=== PATIENT | female | born 1970 | race Hispanic/Latino ===

== ENCOUNTER 2020-07-24 16:12 | Observation (INO) | payer MEDICARE ==
[2020-07-24] MEDS ORDERED: ASPIRIN 325 MG TAB PO ONE (16:33)
--- NOTE | 2020-07-24 17:06 | XRay Report ---
CHEST 2 VIEWS INDICATION / CLINICAL INFORMATION: Chest Pain. COMPARISON: None available. FINDINGS: SUPPORT DEVICES: None. HEART / MEDIASTINUM: No significant abnormality. LUNGS / PLEURA: No significant pulmonary or pleural abnormality. No pneumothorax. ADDITIONAL FINDINGS: No significant additional findings. IMPRESSION: No acute cardiopulmonary abnormality. Signer Name: Jose R Cross MD Signed: 07/24/2020 5:02 PM Workstation Name: [id number]
[2020-07-24 17:20] LABS: Basophils % (Auto) 0.5 % (0.0-1.8); Eosinophils # (Auto) 0.2 K/mm3 (0.0-0.4); Eosinophils % (Auto) 2.4 % (0.0-4.3); Hematocrit 38.7 % (30.3-42.9); Hemoglobin 12.9 gm/dl (10.1-14.3); Lymphocytes # (Auto) 2.9 K/mm3 (1.2-5.4); Lymphocytes % (Auto) 32.1 % (13.4-35.0); Mean Corpuscular HGB Conc 33 % (30-34); Mean Corpuscular Volume 84 fl (79-97); Monocytes # (Auto) 0.7 K/mm3 (0.0-0.8); Monocytes % (Auto) 7.4 % (0.0-7.3); Platelet Count 205 K/mm3 (140-440); Red Blood Count 4.61 M/mm3 (3.65-5.03); Red Cell Distribution Width 16.8 % (13.2-15.2)
[2020-07-24 17:36] LABS: Blood Urea Nitrogen 18 mg/dL (7-17); Calcium 8.8 mg/dL (8.4-10.2); Hemolysis Index 5
[2020-07-24 17:53] LABS: BUN/Creatinine Ratio 26
[2020-07-24] MEDS ORDERED: fentaNYL 100 MCG/2 ML INJ IV ONE (20:27)
[2020-07-24] MEDS ORDERED: ONDANSETRON 4 MG/2 ML INJ IV ONE (20:27)
[2020-07-24] MEDS ORDERED: NITROGLYCERIN 2% OINT 1 GM TP ONE (20:32)
--- NOTE | 2020-07-24 20:35 | Emergency Department Report ---
HPI - General Chief Complaint: Chest Pain Time Seen by Provider: 07/24/20 20:22 - HPI HPI: Room 34 The patient is a 50-year-old female presents with a chief complaint of chest pain. The patient has a history of coronary artery disease and states she last received a cardiac stent approximately 2 years ago. The patient states for the past 1.5 weeks she has had intermittent substernal chest pain radiating to her left upper extremity and shoulder. Patient states he feels as though there is an elephant sitting on her chest. Patient admits to shortness of breath, nausea/vomiting and diaphoresis with her pain. Patient currently gives her chest pain score of 6/10. The patient states she contacted her clinical laboratory aide today (Dr. King) when turn instructed her to come to the emergency department. ED Past Medical Hx - Past Medical History Previous Medical History?: Yes Hx Asthma: Yes Additional medical history: RSD, Diverticulitis, IBS, - Surgical History Past Surgical History?: Yes Hx Cholecystectomy: Yes Additional Surgical History: Fundoplication, hemorrhoidectomy, partial hysterectomy - Family History Family history: no significant - Social History Smoking Status: Current Every Day Smoker (1/3 pack/day) Substance Use Type: None (Denies illicit drug use) - Medications Home Medications: Home Medications Medication Instructions Recorded Confirmed Last Taken Type Dicyclomine [Bentyl] 20 mg PO QID PRN #20 tablet 09/13/14 Unknown Rx Ibuprofen [Advil] 100 mg PO PRN PRN 09/13/14 09/13/14 09/13/14 History ED Review of Systems ROS: Stated complaint: CHEST PAIN Other details as noted in HPI Constitutional: diaphoresis Eyes: denies: eye pain ENT: denies: throat pain Respiratory: shortness of breath Cardiovascular: chest pain Endocrine: no symptoms reported Gastrointestinal: nausea, vomiting Genitourinary: denies: dysuria Musculoskeletal: denies: back pain Neurological: denies: headache Physical Exam - Physical Exam Vital Signs: Vital Signs 07/24/20 16:17 Temperature 98 F Pulse Rate 95 H Respiratory 24 Rate Blood Pressure 125/91 [Right] O2 Sat by Pulse 96 Oximetry Physical Exam: GENERAL: The patient is well-developed well-nourished female lying on stretcher not appearing to be in acute distress. [] HEENT: Normocephalic. Atraumatic. Extraocular motions are intact. Patient has moist mucous membranes. NECK: Supple. Trachea midline CHEST/LUNGS: Clear to auscultation. There is no respiratory distress noted. HEART/CARDIOVASCULAR: Regular. There is no tachycardia. There is no gallop rub or murmur. ABDOMEN: Abdomen is soft, nontender. Patient has normal bowel sounds. There is no abdominal distention. SKIN: There is no rash. There is no edema. There is no diaphoresis. NEURO: The patient is awake, alert, and oriented. The patient is cooperative. The patient has no focal neurologic deficits. The patient has normal speech MUSCULOSKELETAL: There is no evidence of acute injury. ED Course Vital Signs 07/24/20 16:17 Temperature 98 F Pulse Rate 95 H Respiratory 24 Rate Blood Pressure 125/91 [Right] O2 Sat by Pulse 96 Oximetry ED Medical Decision Making - Lab Data Result diagrams: 07/24/20 17:04 07/24/20 17:04 Laboratory Tests 07/24/20 07/24/20 17:04 17:04 WBC 9.0 RBC 4.61 Hgb 12.9 Hct 38.7 MCV 84 MCH 28 MCHC 33 RDW 16.8 H Plt Count 205 Lymph % (Auto) 32.1 [place] % (Auto) 7.4 H Eos % (Auto) 2.4 Baso % (Auto) 0.5 Lymph # (Auto) 2.9 [place] # (Auto) 0.7 Eos # (Auto) 0.2 Baso # (Auto) 0.0 Seg Neutrophils % 57.6 Seg Neutrophils # 5.2 Sodium 144 Potassium 4.1 Chloride 107.8 H Carbon Dioxide 24 Anion Gap 16 BUN 18 H Creatinine 0.7 Estimated GFR > 60 BUN/Creatinine Ratio 26 Glucose 86 Calcium 8.8 Troponin T < 0.010 - EKG Data -: EKG Interpreted by Me EKG shows normal: sinus rhythm Rate: normal - EKG Data When compared to previous EKG there are: previous EKG unavailable Interpretation: other (No ischemic changes seen) - Radiology Data Radiology results: report reviewed (Chest x-ray), image reviewed (Chest x-ray) interpreted by me: Chest x-ray-no focal infiltrates, no pneumothorax, no foreign body seen Findings [facility] [address] [place] [address] XRay Report Signed Patient: MARYCARMEN RYDER MR#: [id number] : 1970 Acct:[id number] Age/Sex: 50 / F ADM Date: 07/24/20 Loc: ED Attending Dr: Ordering Physician: FARTUN GEORGE MD Date of Service: 07/24/20 Procedure(s): XR chest routine 2V Accession Number(s): [id number] cc: ED MD ARIEL Fluoro Time In Minutes: CHEST 2 VIEWS INDICATION / CLINICAL INFORMATION: Chest Pain. COMPARISON: None available. FINDINGS: SUPPORT DEVICES: None. HEART / MEDIASTINUM: No significant abnormality. LUNGS / PLEURA: No significant pulmonary or pleural abnormality. No pneumothorax. ADDITIONAL FINDINGS: No significant additional findings. IMPRESSION: No acute cardiopulmonary abnormality. Signer Name: Patricia Cross MD Signed: 07/24/2020 5:02 PM Workstation Name: [id number] Transcribed By: SS Dictated By: PATRICIA CROSS Electronically Authenticated By: PATRICIA CROSS Signed Date/Time: 07/24/201701 DD/ 00 TD/TT: - Differential Diagnosis ACS, pericarditis, GERD Critical care attestation.: If time is entered above; I have spent that time in minutes in the direct care of this critically ill patient, excluding procedure time. ED Disposition Clinical Impression: Chest pain Disposition: OP ADMIT IP TO THIS HOSP Is pt being admited?: Yes Does the pt Need Aspirin: Yes Condition: Fair Instructions: Chest Pain (ED) Referrals: PRIMARY CARE, [Primary Care Provider] - 3-5 Days Time of Disposition: 21:06 (Hospitalist paged (Dr. Bacon)) HEART Score - HEART Score History: Highly suspicious EKG: Normal Age: 45-65 Risk factors: 1-2 risk factors Troponin: Troponin T < 0.010 ng/mL (0.00-0.029) 07/24/20 17:04 Troponin: < normal limit HEART Score: 4
--- NOTE | 2020-07-24 23:07 | History and Physical Report ---
History of Present Illness Date of examination: 07/24/20 Date of admission: 07/24/20 21:18 Chief complaint: chest pain History of present illness: The patient is a 50-year-old female presents with a chief complaint of chest pain. The patient has a history of coronary artery disease and states she last received a cardiac stent approximately 2 years ago. The patient states for the past 1.5 weeks she has had intermittent substernal chest pain radiating to her left upper extremity and shoulder. Patient states he feels as though there is an elephant sitting on her chest. Patient admits to shortness of breath, nausea/vomiting and diaphoresis with her pain. Patient currently gives her chest pain score of 6/10. The patient states she contacted her timber supervisor today (Dr. King) when turn instructed her to come to the emergency department. ED work-up shows WBC 9.0, hemoglobin 12.9, platelets 205, creatinine 0.9, sodium 144 Troponin negative, potassium 4.1, checks x-ray-no acute findings. Patient seen at bedside in the ED. Alert and oriented x3. Patient reports history of anxiety, intermittent chest pain, and a history of cardiac stent placement about 2 years ago. Chest pain nonradiating. Troponin was done on admission and is negative. Chest x-ray also done and it was negative. Dr. King is patients timber supervisor and will consult him to see patient. Past History Past Medical History: CAD, hyperlipidemia, other (stent placement, IBS and asthma) Past Surgical History: No surgical history Social history: smoking Medications and Allergies Allergies Allergy/AdvReac Type Severity Reaction Status Date / Time diphenhydramine HCl Allergy Swelling Verified 09/13/14 12:25 [From Benadryl] ketorolac tromethamine Allergy Shortness Verified 09/13/14 12:25 [From Toradol] of Breath Home Medications Medication Instructions Recorded Confirmed Last Taken Type Dicyclomine [Bentyl] 20 mg PO QID PRN #20 tablet 09/13/14 07/25/20 Unknown Rx Atorvastatin 40 mg PO DAILY 07/25/20 07/25/20 07/24/20 History Clopidogrel 75 mg PO DAILY 07/25/20 07/25/20 07/24/20 History Isosorbide Mononitrate 20 mg PO DAILY 07/25/20 07/25/20 07/24/20 History Metoprolol [Lopressor TAB] 25 mg PO BID 07/25/20 07/25/20 07/24/20 History Review of Systems Ears, nose, mouth and throat: no epistaxis Breasts: no pain Cardiovascular: chest pain, high blood pressure Respiratory: no congestion, no wheezing Gastrointestinal: no abdominal pain Genitourinary Female: no dyspareunia Rectal: no itching Integumentary: no rash, no pruritis Neurological: no vertigo Psychiatric: anxiety, anxiety attacks Hematologic/Lymphatic: no easy bruising Allergic/Immunologic: no urticaria Exam - Constitutional Vitals: Temp Pulse Resp BP Pulse Ox 98 F 86 17 108/61 96 07/24/20 16:17 07/24/20 22:15 07/24/20 22:15 07/24/20 22:15 07/24/20 22:15 General appearance: Present: mild distress, obese - EENT Eyes: Present: PERRL ENT: hearing intact, clear oral mucosa - Neck Neck: Present: supple, normal ROM - Respiratory Respiratory effort: normal Respiratory: bilateral: CTA - Cardiovascular Heart rate: 86 Heart Sounds: Present: S1 & S2. Absent: rub, click - Extremities Extremities: pulses symmetrical, No edema Peripheral Pulses: within normal limits - Abdominal General gastrointestinal: Present: soft, non-tender, non-distended, normal bowel sounds Female genitourinary: Present: normal - Integumentary Integumentary: Present: clear, warm, dry - Musculoskeletal Musculoskeletal: gait normal, strength equal bilaterally - Psychiatric Psychiatric: appropriate mood/affect, intact judgment & insight, cooperative - Neurologic Neurologic: CNII-XII intact, moves all extremities - Allied Health Allied health notes reviewed: nursing HEART Score - HEART Score EKG: Normal Age: 45-65 Risk factors: 1-2 risk factors Troponin: Troponin T < 0.010 ng/mL (0.00-0.029) 07/24/20 17:04 Troponin: < normal limit Results - Labs CBC & Chem 7: 07/24/20 17:04 07/24/20 17:04 Labs: Abnormal lab results 07/24/20 07/24/20 Range/Units 17:04 17:04 RDW 16.8 H (13.2-15.2) % [place] % (Auto) 7.4 H (0.0-7.3) % Chloride 107.8 H (98-107) mmol/L BUN 18 H (7-17) mg/dL Assessment and Plan - Patient Problems (1) Chest pain Current Visit: Yes Status: Acute Plan to address problem: Unknown cause possible anxiety/cardiac related Monitor cardiac enzymes. Troponin negative on admission Checks x-ray no acute finding Cardiology consult. (2) Tobacco use Current Visit: Yes Status: Acute Plan to address problem: Discussed tobacco use cessation Cardiovascular and neoplasm syndrome of tobacco use explained to patient (3) Hx of coronary artery disease Current Visit: Yes Status: Acute Plan to address problem: History of CAD with stents placement Supportive care and cardiac consults Continue antiplatelet (4) Morbid obesity due to excess calories Current Visit: Yes Status: Acute Plan to address problem: Discussed lifestyle modification Healthy diet with more fruits and vegetables Encouraged regular exercise and weight management Advised to avoid fatty food, animal fat, and foods rich in concentrated sweeteners.
[2020-07-24] MEDS ORDERED: METOCLOPRAMIDE 10 MG/2 ML INJ IV PRN (23:22)
[2020-07-24] MEDS ORDERED: LACTULOSE 20 GM/30 ML ORAL LIQD PO PRN (23:22)
[2020-07-24] MEDS ORDERED: ALUM-MAG HYDROXIDE-SIMETHICONE 200-200-20MG/5ML ORAL LIQD 30 ML PO PRN (23:22)
[2020-07-24] MEDS ORDERED: ONDANSETRON 4 MG/2 ML INJ IV PRN (23:22)
[2020-07-25] MEDS: traZODone 50 MG TAB PO SCH ×2 (00:09→21:31)
[2020-07-25] MEDS: ASPIRIN EC 81 MG TAB PO SCH (09:43)
[2020-07-25] MEDS: SERTRALINE 50 MG TAB PO SCH (09:43)
[2020-07-25] MEDS: ENOXAPARIN 40 MG/0.4 ML INJ SUB-Q SCH (09:44)
--- NOTE | 2020-07-25 10:04 | Progress Note ---
Assessment and Plan Assessment and plan: Chest pain. Tobacco abuse Coronary artery disease Morbid obesity due to excess calories. 07/25/2020. Patient reportedly with a history of coronary artery disease s/p stent 2 years ago. Troponin is negative. EKG normal sinus rhythm with no ST-T wave changes. Chest x-ray reveals no focal infiltrates, pneumothorax or foreign body seen. Await cardiology evaluation. History Interval history: No new issues overnight. Hospitalist Physical - Constitutional Vitals: Temp Pulse Resp BP Pulse Ox 98.4 F 84 18 105/52 96 07/25/20 07:47 07/25/20 07:47 07/25/20 07:47 07/25/20 07:47 07/25/20 07:47 General appearance: Present: mild distress, obese - EENT Eyes: Present: PERRL, EOM intact ENT: hearing intact, clear oral mucosa, dentition normal - Neck Neck: Present: supple, normal ROM - Respiratory Respiratory effort: normal Respiratory: bilateral: CTA - Cardiovascular Rhythm: regular Heart Sounds: Present: S1 & S2. Absent: gallop, rub - Extremities Extremities: no ischemia, No edema, Full ROM - Abdominal General gastrointestinal: soft, non-tender, non-distended, normal bowel sounds - Integumentary Integumentary: Present: clear, warm, dry - Neurologic Neurologic: CNII-XII intact, moves all extremities HEART Score - HEART Score EKG: Normal Age: 45-65 Risk factors: 1-2 risk factors Troponin: Troponin T < 0.010 ng/mL (0.00-0.029) 07/24/20 17:04 Troponin: < normal limit Results - Labs CBC & Chem 7: 07/24/20 17:04 07/24/20 17:04 Labs: Laboratory Last Values WBC 9.0 K/mm3 (4.5-11.0) 07/24/20 17:04 RBC 4.61 M/mm3 (3.65-5.03) 07/24/20 17:04 Hgb 12.9 gm/dl (10.1-14.3) 07/24/20 17:04 Hct 38.7 % (30.3-42.9) 07/24/20 17:04 MCV 84 fl (79-97) 07/24/20 17:04 MCH 28 pg (28-32) 07/24/20 17:04 MCHC 33 % (30-34) 07/24/20 17:04 RDW 16.8 % (13.2-15.2) H 07/24/20 17:04 Plt Count 205 K/mm3 (140-440) 07/24/20 17:04 Lymph % (Auto) 32.1 % (13.4-35.0) 07/24/20 17:04 [place] % (Auto) 7.4 % (0.0-7.3) H 07/24/20 17:04 Eos % (Auto) 2.4 % (0.0-4.3) 07/24/20 17:04 Baso % (Auto) 0.5 % (0.0-1.8) 07/24/20 17:04 Lymph # (Auto) 2.9 K/mm3 (1.2-5.4) 07/24/20 17:04 [place] # (Auto) 0.7 K/mm3 (0.0-0.8) 07/24/20 17:04 Eos # (Auto) 0.2 K/mm3 (0.0-0.4) 07/24/20 17:04 Baso # (Auto) 0.0 K/mm3 (0.0-0.1) 07/24/20 17:04 Seg Neutrophils % 57.6 % (40.0-70.0) 07/24/20 17:04 Seg Neutrophils # 5.2 K/mm3 (1.8-7.7) 07/24/20 17:04 Sodium 144 mmol/L (137-145) 07/24/20 17:04 Potassium 4.1 mmol/L (3.6-5.0) 07/24/20 17:04 Chloride 107.8 mmol/L (98-107) H 07/24/20 17:04 Carbon Dioxide 24 mmol/L (22-30) 07/24/20 17:04 Anion Gap 16 mmol/L 07/24/20 17:04 BUN 18 mg/dL (7-17) H 07/24/20 17:04 Creatinine 0.7 mg/dL (0.6-1.2) 07/24/20 17:04 Estimated GFR > 60 ml/min 07/24/20 17:04 BUN/Creatinine Ratio 26 % 02/05/21 17:04 Glucose 86 mg/dL (65-100) 07/24/20 17:04 Calcium 8.8 mg/dL (8.4-10.2) 07/24/20 17:04 Troponin T < 0.010 ng/mL (0.00-0.029) 07/24/20 17:04 [place]/IV: Voiding Method Toilet Active Medications - Current Medications Current Medications: Generic Name Dose Route Start Last Admin Trade Name Freq PRN Reason Stop Dose Admin Al Hydrox/Mg Hydrox/Simethicone 15 ml 07/24/20 23:22 07/25/20 09:44 Alum-Mag Hydroxide-Simethicone [id number]/5ml Oral Liqd 30 Ml PO 15 ml Q4H PRN Administration Indigestion Aspirin 81 mg 07/25/20 10:00 07/25/20 09:43 Aspirin Ec 81 Mg Tab PO 81 mg QDAY CHIP Administration Enoxaparin Sodium 40 mg 07/25/20 10:00 07/25/20 09:44 Enoxaparin 40 Mg/0.4 Ml Inj SUB-Q 40 mg QDAY CHIP Administration Protocol Lactulose 20 gm 07/24/20 23:22 Lactulose 20 Gm/30 Ml Oral Liqd PO QHS PRN Constipation Metoclopramide HCl 10 mg 07/24/20 23:22 Metoclopramide 10 Mg/2 Ml Inj IV Q6H PRN Nausea And Vomiting Ondansetron HCl 4 mg 07/24/20 23:22 07/25/20 09:43 Ondansetron 4 Mg/2 Ml Inj IV 4 mg Q4H PRN Administration Nausea And Vomiting Sertraline HCl 50 mg 07/25/20 10:00 07/25/20 09:43 Sertraline 50 Mg Tab PO 50 mg QDAY CHIP Administration Tramadol HCl 50 mg 07/24/20 23:22 Tramadol 50 Mg Tab PO Q4H PRN Pain, Moderate (4-6) Trazodone HCl 50 mg 07/25/20 00:15 07/25/20 00:09 Trazodone 50 Mg Tab PO 50 mg QHS CHIP Administration
[2020-07-25] MEDS ORDERED: FLU VACC QUAD 2020-2021 (6 months +)/PF 60 0.5 ML SYRINGE IM ONE (12:00)
--- NOTE | 2020-07-25 15:48 | Consultation ---
History of Present Illness Consult date: 07/25/20 Consult reason: chest pain History of present illness: 50 YO woman with prior h/o CAD s/p UT and PCI and tobacco use who is currently h ospitalized with left and mid sternal chest pain. She describes pain as a pressure type sensation with associated dyspnea. Of note, she was recently evaluated by Dr King in office after she had been lost to f/u for about 2 years and had not been taking her medications. She was scheduled for outpatient MPI and echo but ended up coming to hospital due to chest pain. Her prior cardiac history consists of prior acute lateral STEMI on 06/18/18. She was treated with primary PCI-DE stent to circumflex. Her LV function was normal at that time. EKG reveals SR and is otherwise unremarkable. Past History Past Medical History: CAD, hyperlipidemia, other (stent placement, IBS and asthma) Past Surgical History: No surgical history Social history: smoking Medications and Allergies Allergies Allergy/AdvReac Type Severity Reaction Status Date / Time diphenhydramine HCl Allergy Swelling Verified 09/13/14 12:25 [From Benadryl] ketorolac tromethamine Allergy Shortness Verified 09/13/14 12:25 [From Toradol] of Breath Home Medications Medication Instructions Recorded Confirmed Last Taken Type Dicyclomine [Bentyl] 20 mg PO QID PRN #20 tablet 09/13/14 07/25/20 Unknown Rx Atorvastatin 40 mg PO DAILY 07/25/20 07/25/20 07/24/20 History Clopidogrel 75 mg PO DAILY 07/25/20 07/25/20 07/24/20 History Isosorbide Mononitrate 20 mg PO DAILY 07/25/20 07/25/20 07/24/20 History Metoprolol [Lopressor TAB] 25 mg PO BID 07/25/20 07/25/20 07/24/20 History Active Meds: Active Medications Al Hydrox/Mg Hydrox/Simethicone (Alum-Mag Hydroxide-Simethicone [phone]/5ml Oral Liqd 30 Ml) 15 ml PO Q4H PRN PRN Reason: Indigestion Last Admin: 07/25/20 09:44 Dose: 15 ml Documented by: Aspirin (Aspirin Ec 81 Mg Tab) 81 mg PO QDAY CHIP Last Admin: 07/25/20 09:43 Dose: 81 mg Documented by: Enoxaparin Sodium (Enoxaparin 40 Mg/0.4 Ml Inj) 40 mg SUB-Q QDAY [facility]; Protocol Last Admin: 07/25/20 09:44 Dose: 40 mg Documented by: Lactulose (Lactulose 20 Gm/30 Ml Oral Liqd) 20 gm PO QHS PRN PRN Reason: Constipation Metoclopramide HCl (Metoclopramide 10 Mg/2 Ml Inj) 10 mg IV Q6H PRN PRN Reason: Nausea And Vomiting Ondansetron HCl (Ondansetron 4 Mg/2 Ml Inj) 4 mg IV Q4H PRN PRN Reason: Nausea And Vomiting Last Admin: 07/25/20 09:43 Dose: 4 mg Documented by: Sertraline HCl (Sertraline 50 Mg Tab) 50 mg PO QDAY [facility] Last Admin: 07/25/20 09:43 Dose: 50 mg Documented by: Tramadol HCl (Tramadol 50 Mg Tab) 50 mg PO Q4H PRN PRN Reason: Pain, Moderate (4-6) Trazodone HCl (Trazodone 50 Mg Tab) 50 mg PO QHS [facility] Last Admin: 07/25/20 00:09 Dose: 50 mg Documented by: Review of Systems All systems: negative (per hpi) Physical Examination Vital Signs Temp Pulse Resp BP Pulse Ox 98 F 95 H 24 125/91 96 07/24/20 16:17 07/24/20 16:17 07/24/20 16:17 07/24/20 16:17 07/24/20 16:17 HEENT: Positive: PERRL Neck: Positive: trachea midline Cardiac: Positive: Reg Rate and Rhythm Lungs: Positive: clear to auscultation Neuro: Positive: Grossly Intact Abdomen: Positive: Soft, Active Bowel Sounds Extremities: Absent: edema Results 07/24/20 17:04 07/24/20 17:04 CBC 07/24/20 Range/Units 17:04 WBC 9.0 (4.5-11.0) K/mm3 RBC 4.61 (3.65-5.03) M/mm3 Hgb 12.9 (10.1-14.3) gm/dl Hct 38.7 (30.3-42.9) % Plt Count 205 (140-440) K/mm3 Lymph # (Auto) 2.9 (1.2-5.4) K/mm3 [place] # (Auto) 0.7 (0.0-0.8) K/mm3 Eos # (Auto) 0.2 (0.0-0.4) K/mm3 Baso # (Auto) 0.0 (0.0-0.1) K/mm3 Comprehensive Metabolic Panel 07/24/20 Range/Units 17:04 Sodium 144 (137-145) mmol/L Potassium 4.1 (3.6-5.0) mmol/L Chloride 107.8 H (98-107) mmol/L Carbon Dioxide 24 (22-30) mmol/L BUN 18 H (7-17) mg/dL Creatinine 0.7 (0.6-1.2) mg/dL Glucose 86 (65-100) mg/dL Calcium 8.8 (8.4-10.2) mg/dL Assessment and Plan Chest pain in patient with known CAD H/O CAD s/p prior UT/PCI Tobacco use Recommend: Tobacco cessation Restart beta stephanie and statin MPI on monday
[2020-07-25] MEDS: traMADol 50 MG TAB PO PRN (16:55)
[2020-07-25] MEDS: METOPROLOL TARTRATE 25 MG TAB PO SCH (21:31)
[2020-07-25] MEDS ORDERED: traZODone 50 MG TAB PO SCH (22:00)
[2020-07-26 07:35] LABS: Basophils % (Auto) 0.5 % (0.0-1.8); Eosinophils # (Auto) 0.1 K/mm3 (0.0-0.4); Hematocrit 40.3 % (30.3-42.9); Hemoglobin 13.3 gm/dl (10.1-14.3); Lymphocytes # (Auto) 2.2 K/mm3 (1.2-5.4); Lymphocytes % (Auto) 32.4 % (13.4-35.0); Mean Corpuscular HGB Conc 33 % (30-34); Mean Corpuscular Volume 84 fl (79-97); Monocytes # (Auto) 0.5 K/mm3 (0.0-0.8); Monocytes % (Auto) 6.9 % (0.0-7.3); Platelet Count 185 K/mm3 (140-440); Red Blood Count 4.78 M/mm3 (3.65-5.03); Red Cell Distribution Width 16.4 % (13.2-15.2)
[2020-07-26 07:51] LABS: Blood Urea Nitrogen 13 mg/dL (7-17); Calcium 8.6 mg/dL (8.4-10.2); Hemolysis Index 4
[2020-07-26 07:52] LABS: BUN/Creatinine Ratio 22
--- NOTE | 2020-07-26 08:33 | Progress Note ---
Assessment and Plan Assessment and plan: 50 YO woman with prior h/o CAD s/p TX and PCI and tobacco use was admitted with diagnosis of chest pain. She described the pain as a pressure type sensation with associated dyspnea. Of note, she was recently evaluated by Dr King in office after she had been lost to f/u for about 2 years and had not been taking her medications. She was scheduled for outpatient MPI and echo but ended up coming to hospital due to chest pain. Her prior cardiac history consists of prior acute lateral STEMI on 06/18/18. She was treated with primary PCI-DE stent to circumflex. Her LV function was normal at that time. EKG on admission showed normal sinus rhythm with no ST-T wave change Chest pain. Tobacco abuse Coronary artery disease Morbid obesity due to excess calories. 07/25/2020. Patient reportedly with a history of coronary artery disease s/p stent 2 years ago. Troponin is negative. EKG normal sinus rhythm with no ST-T wave changes. Chest x-ray reveals no focal infiltrates, pneumothorax or foreign body seen. Await cardiology evaluation. 07/26/2020. Patient reportedly with prior cardiac history consisting of acute lateral [facility] on 06/18/2018 that was treated with primary PCIDE stent to the circumflex. LV function normal at that time. EKG reveals sinus rhythm and otherwise unremarkable. Cardiology plans to perform MPI on Monday. Continue beta-stephanie and statin. History Interval history: No new issues overnight. Hospitalist Physical - Constitutional Vitals: Temp Pulse Resp BP Pulse Ox 98.4 F 74 18 103/49 92 07/26/20 07:43 07/26/20 07:43 07/26/20 07:43 07/26/20 07:43 07/26/20 07:43 General appearance: Present: mild distress, obese - EENT Eyes: Present: PERRL, EOM intact ENT: hearing intact, clear oral mucosa, dentition normal - Neck Neck: Present: supple, normal ROM - Respiratory Respiratory effort: normal Respiratory: bilateral: CTA - Cardiovascular Rhythm: regular Heart Sounds: Present: S1 & S2. Absent: gallop, rub - Extremities Extremities: no ischemia, No edema, Full ROM - Abdominal General gastrointestinal: soft, non-tender, non-distended, normal bowel sounds - Integumentary Integumentary: Present: clear, warm, dry - Neurologic Neurologic: CNII-XII intact, moves all extremities HEART Score - HEART Score EKG: Normal Age: 45-65 Risk factors: 1-2 risk factors Troponin: Troponin T < 0.010 ng/mL (0.00-0.029) 07/24/20 17:04 Troponin: < normal limit Results - Labs CBC & Chem 7: 07/26/20 06:28 02 06:28 Labs: Laboratory Last Values WBC 6.7 K/mm3 (4.5-11.0) 07/26/20 06:28 RBC 4.78 M/mm3 (3.65-5.03) 07/26/20 06:28 Hgb 13.3 gm/dl (10.1-14.3) 07/26/20 06:28 Hct 40.3 % (30.3-42.9) 07/26/20 06:28 MCV 84 fl (79-97) 07/26/20 06:28 MCH 28 pg (28-32) 07/26/20 06:28 MCHC 33 % (30-34) 07/26/20 06:28 RDW 16.4 % (13.2-15.2) H 07/26/20 06:28 Plt Count 185 K/mm3 (140-440) 07/26/20 06:28 Lymph % (Auto) 32.4 % (13.4-35.0) 07/26/20 06:28 [place] % (Auto) 6.9 % (0.0-7.3) 07/26/20 06:28 Eos % (Auto) 2.0 % (0.0-4.3) 07/26/20 06:28 Baso % (Auto) 0.5 % (0.0-1.8) 07/26/20 06:28 Lymph # (Auto) 2.2 K/mm3 (1.2-5.4) 07/26/20 06:28 [place] # (Auto) 0.5 K/mm3 (0.0-0.8) 07/26/20 06:28 Eos # (Auto) 0.1 K/mm3 (0.0-0.4) 07/26/20 06:28 Baso # (Auto) 0.0 K/mm3 (0.0-0.1) 07/26/20 06:28 Seg Neutrophils % 58.2 % (40.0-70.0) 07/26/20 06:28 Seg Neutrophils # 3.9 K/mm3 (1.8-7.7) 07/26/20 06:28 Sodium 140 mmol/L (137-145) 07/26/20 06:28 Potassium 3.9 mmol/L (3.6-5.0) 07/26/20 06:28 Chloride 105.4 mmol/L (98-107) 07/26/20 06:28 Carbon Dioxide 29 mmol/L (22-30) 07/26/20 06:28 Anion Gap 10 mmol/L 07/26/20 06:28 BUN 13 mg/dL (7-17) 07/26/20 06:28 Creatinine 0.6 mg/dL (0.6-1.2) 07/26/20 06:28 Estimated GFR > 60 ml/min 07/26/20 06:28 BUN/Creatinine Ratio 22 % 07/26/20 06:28 Glucose 89 mg/dL (65-100) 07/26/20 06:28 Calcium 8.6 mg/dL (8.4-10.2) 07/26/20 06:28 Troponin T < 0.010 ng/mL (0.00-0.029) 07/24/20 17:04 [place]/IV: Voiding Method Toilet Active Medications - Current Medications Current Medications: Generic Name Dose Route Start Last Admin Trade Name Freq PRN Reason Stop Dose Admin Al Hydrox/Mg Hydrox/Simethicone 15 ml 07/24/20 23:22 07/25/20 09:44 Alum-Mag Hydroxide-Simethicone 475-509-26wh/5ml Oral Liqd 30 Ml PO 15 ml Q4H PRN Administration Indigestion Aspirin 81 mg 07/25/20 10:00 07/25/20 09:43 Aspirin Ec 81 Mg Tab PO 81 mg QDAY CHIP Administration Atorvastatin Calcium 20 mg 07/25/20 22:00 07/25/20 21:31 Atorvastatin 20 Mg Tab PO 20 mg QHS CHIP Administration Enoxaparin Sodium 40 mg 07/25/20 10:00 07/25/20 09:44 Enoxaparin 40 Mg/0.4 Ml Inj SUB-Q 40 mg QDAY CHIP Administration Protocol Lactulose 20 gm 02/05/21 23:22 Lactulose 20 Gm/30 Ml Oral Liqd PO QHS PRN Constipation Metoclopramide HCl 10 mg 07/24/20 23:22 Metoclopramide 10 Mg/2 Ml Inj IV Q6H PRN Nausea And Vomiting Metoprolol Tartrate 25 mg 07/25/20 22:00 07/25/20 21:31 Metoprolol Tartrate 25 Mg Tab PO 25 mg BID CHIP Administration Ondansetron HCl 4 mg 07/24/20 23:22 07/25/20 09:43 Ondansetron 4 Mg/2 Ml Inj IV 4 mg Q4H PRN Administration Nausea And Vomiting Sertraline HCl 50 mg 07/25/20 10:00 07/25/20 09:43 Sertraline 50 Mg Tab PO 50 mg QDAY CHIP Administration Tramadol HCl 50 mg 07/24/20 23:22 07/25/20 16:55 Tramadol 50 Mg Tab PO 50 mg Q4H PRN Administration Pain, Moderate (4-6) Trazodone HCl 50 mg 07/25/20 00:15 07/25/20 21:31 Trazodone 50 Mg Tab PO 50 mg QHS CHIP Administration
[2020-07-26] MEDS: METOPROLOL TARTRATE 25 MG TAB PO SCH ×2 (09:36→21:16)
[2020-07-26] MEDS: ASPIRIN EC 81 MG TAB PO SCH (09:36)
[2020-07-26] MEDS: ENOXAPARIN 40 MG/0.4 ML INJ SUB-Q SCH (09:36)
[2020-07-26] MEDS: SERTRALINE 50 MG TAB PO SCH (09:36)
--- NOTE | 2020-07-26 15:03 | Progress Note ---
Assessment and Plan Chest pain in patient with known CAD H/O CAD s/p prior NE/PCI Tobacco use Recommend: Tobacco cessation Continue aspirin, beta stephanie, and statin MPI on monday Subjective Date of service: 07/26/20 Interval history: No new complaints Objective Vital Signs Temp Pulse Resp BP BP Pulse Ox 07/26/20 10:54 18 96 07/26/20 09:40 18 108/45 07/26/20 09:36 108/50 07/26/20 07:43 98.4 F 74 18 103/49 92 07/26/20 07:00 76 07/26/20 04:43 75 95/48 91 07/26/20 00:11 98.0 F 73 18 109/43 110/58 94 07/25/20 23:00 82 07/25/20 20:36 18 07/25/20 19:35 98.6 F 82 20 140/59 96 07/25/20 16:36 98.4 F 84 18 112/58 96 - Physical Examination HEENT: Positive: PERRL Neck: Positive: trachea midline Cardiac: Positive: Reg Rate and Rhythm Lungs: Positive: clear to auscultation Neuro: Positive: Grossly Intact Abdomen: Positive: Soft, Active Bowel Sounds Extremities: Absent: edema - Labs and Meds CBC 07/26/20 Range/Units 06:28 WBC 6.7 (4.5-11.0) K/mm3 RBC 4.78 (3.65-5.03) M/mm3 Hgb 13.3 (10.1-14.3) gm/dl Hct 40.3 (30.3-42.9) % Plt Count 185 (140-440) K/mm3 Lymph # (Auto) 2.2 (1.2-5.4) K/mm3 [place] # (Auto) 0.5 (0.0-0.8) K/mm3 Eos # (Auto) 0.1 (0.0-0.4) K/mm3 Baso # (Auto) 0.0 (0.0-0.1) K/mm3 Comprehensive Metabolic Panel 07/26/20 Range/Units 06:28 Sodium 140 (137-145) mmol/L Potassium 3.9 (3.6-5.0) mmol/L Chloride 105.4 (98-107) mmol/L Carbon Dioxide 29 (22-30) mmol/L BUN 13 (7-17) mg/dL Creatinine 0.6 (0.6-1.2) mg/dL Glucose 89 (65-100) mg/dL Calcium 8.6 (8.4-10.2) mg/dL
[2020-07-26] MEDS: traMADol 50 MG TAB PO PRN (17:43)
[2020-07-26] MEDS: traZODone 50 MG TAB PO SCH (21:16)
[2020-07-27] MEDS ORDERED: REGADENOSON 0.4 MG/5 ML INJ IV ONE (07:15)
--- NOTE | 2020-07-27 09:30 | Discharge Summary ---
Providers - Providers Date of Admission: 07/26/20 14:35 Date of discharge: 07/27/20 Attending physician: RIDGE MARCOS 07/25/20 07:58 Consult to Physician [CONS] Routine Comment: Consulting Provider: CROW TATE Physician Instructions: Reason For Exam: CP Primary care physician: [facility] Hospitalization Reason for admission: cp Condition: Fair Hospital course: Assessment and plan: 50 YO woman with prior h/o CAD s/p MT and PCI and tobacco use was admitted with diagnosis of chest pain. She described the pain as a pressure type sensation with associated dyspnea. Of note, she was recently evaluated by Dr Tate in office after she had been lost to f/u for about 2 years and had not been taking her medications. She was scheduled for outpatient MPI and echo but ended up coming to hospital due to chest pain. Her prior cardiac history consists of prior acute lateral STEMI on 06/18/18. She was treated with primary PCI-DE stent to circumflex. Her LV function was normal at that time. EKG on admission showed normal sinus rhythm with no ST-T wave change. The patient was admitted with diagnosis of Chest pain, Tobacco abuse, Coronary artery disease and morbid obesity due to excess calories. Hospital course: 07/25/2020. Patient reportedly with a history of coronary artery disease s/p stent 2 years ago. Troponin is negative. EKG normal sinus rhythm with no ST-T wave changes. Chest x-ray reveals no focal infiltrates, pneumothorax or foreign body seen. Await cardiology evaluation. 07/26/2020. Patient reportedly with prior cardiac history consisting of acute lateral [facility] on 06/18/2018 that was treated with primary PCIDE stent to the circumflex. LV function normal at that time. EKG reveals sinus rhythm and otherwise unremarkable. Cardiology plans to perform MPI on Monday. Continue beta-stephanie and statin. 07/27/2020. Patient is to undergo MPI today and if found to be negative will discharge home. Patient is to have tobacco cessation and was counseled. Patient is to continue aspirin, beta-stephanie and statin. Etiology of chest pain is likely secondary to GERD. Dedicated discharge time 35 minutes. Disposition: - TO HOME OR SELFCARE Time spent for discharge: 35 - Discharge Diagnoses (1) GERD (gastroesophageal reflux disease) Status: Acute (2) Chest pain Status: Acute (3) Hx of coronary artery disease Status: Acute (4) Morbid obesity due to excess calories Status: Acute (5) Tobacco use Status: Acute Core Measure Documentation - Palliative Care Palliative Care/ Comfort Measures: Not Applicable - Core Measures Any of the following diagnoses?: none Exam - Constitutional Vitals: Temp Pulse Resp BP Pulse Ox 97.7 F 70 18 93/51 96 07/27/20 03:48 07/27/20 03:48 07/27/20 08:09 07/27/20 03:48 07/27/20 08:09 General appearance: Present: no acute distress, well-nourished - EENT Eyes: Present: PERRL ENT: hearing intact, clear oral mucosa - Neck Neck: Present: supple, normal ROM - Respiratory Respiratory effort: normal Respiratory: bilateral: CTA - Cardiovascular Heart Sounds: Present: S1 & S2. Absent: rub, click - Extremities Extremities: pulses symmetrical, No edema Peripheral Pulses: within normal limits - Abdominal General gastrointestinal: Present: soft, non-tender, non-distended, normal bowel sounds Female genitourinary: Present: normal - Integumentary Integumentary: Present: clear, warm, dry - Musculoskeletal Musculoskeletal: gait normal, strength equal bilaterally - Psychiatric Psychiatric: appropriate mood/affect, intact judgment & insight - Neurologic Neurologic: CNII-XII intact, moves all extremities Plan Activity: advance as tolerated Weight Bearing Status: Weight Bear as Tolerated Diet: low fat, low cholesterol, low salt Follow up with: PRIMARY CAREMD [Primary Care Provider] - 3-5 Days CROW TATE MD [Staff Physician] - 7 Days Prescriptions: Atorvastatin 40 mg PO DAILY #30 Dicyclomine [Bentyl] 20 mg PO QID PRN #20 tablet PRN Reason: Pain Clopidogrel 75 mg PO DAILY #30 Isosorbide Mononitrate 20 mg PO DAILY #30 Metoprolol [Lopressor TAB] 25 mg PO BID #60
--- NOTE | 2020-07-27 11:03 | Progress Note ---
Assessment and Plan - Patient Problems (1) Chest pain Current Visit: Yes Status: Acute Plan to address problem: Patient presented with atypical chest pain, ECGs and cardiac enzymes are negative. She is status post Lexiscan thallium stress test, results are pending. Subjective Date of service: 07/27/20 Interval history: Patient is comfortable, underwent a Lexiscan thallium stress test today, results are pending. Objective Vital Signs Temp Pulse Resp BP Pulse Ox 07/27/20 08:09 18 96 07/27/20 03:48 97.7 F 70 18 93/51 89 07/26/20 23:21 98.0 F 71 18 93/40 91 07/26/20 22:00 18 96 07/26/20 19:14 98.8 F 84 18 121/64 93 07/26/20 16:07 98.9 F 66 18 96/57 95 07/26/20 15:00 78 - Physical Examination General: No Apparent Distress HEENT: Positive: PERRL Neck: Positive: trachea midline Cardiac: Positive: Reg Rate and Rhythm Lungs: Positive: Decreased Breath Sounds Neuro: Positive: Grossly Intact Abdomen: Positive: Soft, Active Bowel Sounds Skin: Positive: Clear Extremities: Absent: edema
[2020-07-27 12:14] VITALS: BP 107/67
--- NOTE | 2020-07-27 12:26 | Treadmill Report ---
THALLIUM STRESS TEST LEFT VENTRICLE: Left ventricular chamber size is within normal limits. Perfusion study demonstrates homogeneous uptake of the tracer in all segments, no significant defects identified. Gated analysis demonstrates normal left ventricular systolic function, ejection fraction of 67%. CONCLUSION: Normal myocardial perfusion study. JOB# [id number] CA/NTS
== END 2020-07-27 12:59 | disposition home or self-care (01) ==
LOC: ED 16:12 → 4A 21:18 → INTOOBSV 07-26 14:35 → OBSVTOIN 07-26 14:35
PROVIDERS: ADMIT Internal Medicine Geriatric Medicine; ATTEND Hospitalist
DX: R07.89 Other chest pain (principal); I25.10 Atherosclerotic heart disease of native coronary artery without angina pectoris; F17.200 Nicotine dependence, unspecified, uncomplicated; E66.01 Morbid (severe) obesity due to excess calories; J45.909 Unspecified asthma, uncomplicated; K57.92 Diverticulitis of intestine, part unspecified, without perforation or abscess without bleeding; E78.5 Hyperlipidemia, unspecified; K58.9 Irritable bowel syndrome, unspecified; Z90.710 Acquired absence of both cervix and uterus; Z98.890 Other specified postprocedural states; Z68.38 Body mass index [BMI] 38.0-38.9, adult; Z95.1 Presence of aortocoronary bypass graft; Z79.82 Long term (current) use of aspirin
CPT/HCPCS: 36415; 71046; 78452; 80048; 84484; 85025; 93005; 93017; 96372; 96374; 96375; 96376; 99285; A9270; A9502; G0378; J1650; J2405; J2785; J3010; 90686

== ENCOUNTER 2021-07-07 12:22 | Emergency (ER) | payer MEDICARE ==
[2021-07-07 13:00] VITALS: BP 128/93
[2021-07-07] MEDS ORDERED: NITROGLYCERIN 0.4 MG TAB SUBL SL ONE (13:50)
[2021-07-07] MEDS ORDERED: FAMOTIDINE 20 MG TAB PO ONE (13:51)
--- NOTE | 2021-07-07 13:52 | Emergency Department Report ---
ED General Adult HPI - General Chief complaint: Chest Pain Stated complaint: CHEST PAIN PUI?: Yes Time Seen by Provider: 07/07/21 13:24 Source: patient, EMS ( EMS documentation not available at time of chart dictation ), RN notes reviewed, old records reviewed Mode of arrival: Stretcher Limitations: No Limitations - History of Present Illness Initial comments: The patient was evaluated in the emergency department for symptoms described in the history of present illness. He/she was evaluated in the context of the global COVID-19 pandemic, which necessitated consideration that the patient might be at risk for infection with the virus that causes COVID-19. Institutional protocols and algorithms that pertain to the evaluation of patients at risk for COVID-19 are in a state of rapid change based on information released by regulatory bodies including the CDC and federal and state organizations. These policies and algorithms were followed during the patient's care in the emergency department. Please note that these policies, procedures and recommendations changed on a rapid basis. The patient is a 51-year-old female. She follows with [facility]. Her past medical history includes obesity, heart disease status postmyocardial infarction, tobacco use, and stent placement. The patient had an acute lateral STEMI on June 18, 2018. She was treated with primary PCI drug-eluting stents to the circumflex, and was found to have a normal LV ejection fraction. She has previously been lost to follow-up secondary to noncompliance. Patient was admitted to this hospital last year, July 2020, for acute chest pain. At that time, she had a nuclear stress test which was negative for acute findings. The patient presents to the ER today with a primary complaint of chest pain which is central and right-sided. The pain does not radiate to the back, arms and neck. The patient denies vomiting and diaphoresis. The patient denies travel, surgery, immobilization, leg pain and leg swelling. She denies DVT/PE risk factors. Patient endorses a secondary complaint of believing that people at her house are trying to poison her with ivermectin and sodium pentathol. However, she also states that her family does not want to have her live in the house with them, and she also reports that they are planning on selling the house. The patient herself states that she is not homicidal or suicidal, and that she is not experiencing hallucinations. She is adamant that she has not attempted to overdose on ivermectin, or any drugs for that matter. She was able to procure a packet of ivermectin from home, and while she insists that sodium pentathol is being used on her, she does not have any physical evidence of the aforementioned. -: Gradual, days(s) Location: chest (Right sided) Radiation: non-radiation Severity scale (0 -10): 5 Quality: aching Consistency: constant Improves with: none Worsens with: none Associated Symptoms: denies other symptoms - Related Data Previous Rx's Medication Instructions Recorded Last Taken Type Aspirin EC [Halfprin EC] 81 mg PO QDAY tablet 07/27/20 Unknown Rx Atorvastatin 40 mg PO DAILY #30 07/27/20 Unknown Rx Clopidogrel 75 mg PO DAILY #30 07/27/20 Unknown Rx Dicyclomine [Bentyl] 20 mg PO QID PRN #20 tablet 07/27/20 Unknown Rx Isosorbide Mononitrate 20 mg PO DAILY #30 07/27/20 Unknown Rx Metoprolol [Lopressor TAB] 25 mg PO BID tablet 07/27/20 Unknown Rx Metoprolol [Lopressor TAB] 25 mg PO BID #60 07/27/20 Unknown Rx Sertraline [Zoloft] 50 mg PO QDAY tablet 07/27/20 Unknown Rx traMADoL [Ultram 50 MG tab] 50 mg PO Q4H PRN tablet 07/27/20 Unknown Rx traZODone [Desyrel] 50 mg PO QHS tablet 07/27/20 Unknown Rx Allergies Allergy/AdvReac Type Severity Reaction Status Date / Time diphenhydramine HCl Allergy Swelling Verified 09/13/14 12:25 [From Benadryl] ketorolac tromethamine Allergy Shortness Verified 09/13/14 12:25 [From Toradol] of Breath ED Review of Systems ROS: Stated complaint: CHEST PAIN Other details as noted in HPI Constitutional: denies: fever Eyes: denies: eye discharge ENT: denies: epistaxis Respiratory: denies: cough Cardiovascular: chest pain Gastrointestinal: denies: abdominal pain, vomiting, diarrhea Genitourinary: denies: dysuria Neurological: denies: weakness, confusion Psychiatric: anxiety. denies: auditory hallucinations, visual hallucinations, homicidal thoughts, suicidal thoughts ED Past Medical Hx - Past Medical History Hx Hypertension: Yes Hx Heart Attack/AMI: Yes Hx GERD: Yes Hx Asthma: Yes Additional medical history: RSD, Diverticulitis, IBS, - Surgical History Hx Coronary Stent: Yes Hx Cholecystectomy: Yes Additional Surgical History: Fundoplication, hemorrhoidectomy, partial hysterectomy - Social History Smoking Status: Current Every Day Smoker - Medications Home Medications: Home Medications Medication Instructions Recorded Confirmed Last Taken Type Aspirin EC [Halfprin EC] 81 mg PO QDAY tablet 07/27/20 Unknown Rx Atorvastatin 40 mg PO DAILY #30 07/27/20 Unknown Rx Clopidogrel 75 mg PO DAILY #30 07/27/20 Unknown Rx Dicyclomine [Bentyl] 20 mg PO QID PRN #20 tablet 07/27/20 Unknown Rx Isosorbide Mononitrate 20 mg PO DAILY #30 07/27/20 Unknown Rx Metoprolol [Lopressor TAB] 25 mg PO BID tablet 07/27/20 Unknown Rx Metoprolol [Lopressor TAB] 25 mg PO BID #60 07/27/20 Unknown Rx Sertraline [Zoloft] 50 mg PO QDAY tablet 07/27/20 Unknown Rx traMADoL [Ultram 50 MG tab] 50 mg PO Q4H PRN tablet 07/27/20 Unknown Rx traZODone [Desyrel] 50 mg PO QHS tablet 07/27/20 Unknown Rx ED Physical Exam - General Limitations: No Limitations General appearance: alert, anxious, obese - Head Head exam: Present: atraumatic, normocephalic - Eye Eye exam: Present: normal appearance, EOMI. Absent: nystagmus - ENT ENT exam: Present: normal exam, normal orophraynx, mucous membranes moist, normal external ear exam - Neck Neck exam: Present: normal inspection, full ROM. Absent: tenderness, meningismus - Respiratory Respiratory exam: Present: normal lung sounds bilaterally. Absent: respiratory distress, wheezes, rales, rhonchi, stridor, chest wall tenderness - Cardiovascular Cardiovascular Exam: Present: regular rate, normal rhythm, normal heart sounds. Absent: bradycardia, tachycardia, irregular rhythm, systolic murmur, diastolic murmur, rubs, gallop - GI/Abdominal GI/Abdominal exam: Present: soft. Absent: distended, tenderness, guarding, rebound, rigid, pulsatile mass - Extremities Exam Extremities exam: Present: full ROM, other (2+ pulses noted in the bilateral upper and lower extremities. There is no palpable cord. negative Homans sign. Muscular compartments are soft. The pelvis is stable.). Absent: normal inspection (Chronic venous stasis changes noted bilateral), calf tenderness - Back Exam Back exam: Present: normal inspection, full ROM. Absent: tenderness, CVA tenderness (R), CVA tenderness (L), paraspinal tenderness, vertebral tenderness - Neurological Exam Neurological exam: Present: alert, oriented X3, other (No facial droop. Tongue midline. Extraocular movements intact bilaterally. Facial sensation intact to light touch in V1, V2, V3 distribution bilaterally. 5 and a 5 strength in 4 e xtremities. Sensation intact to light touch in 4 extremities.). Absent: motor sensory deficit - Psychiatric Psychiatric exam: Present: anxious. Absent: homicidal ideation, suicidal ideation - Skin Skin exam: Present: warm, dry, intact, normal color. Absent: rash ED Course Vital Signs 07/07/21 12:56 Temperature 98.1 F Pulse Rate 105 H Respiratory 18 Rate Blood Pressure 128/93 [Left] O2 Sat by Pulse 96 Oximetry - Reevaluation(s) Reevaluation #1: 07/07/21 15:19 Differential diagnosis, including but not limited to: GERD, gastritis, hiatal hernia, pneumonia, costochondritis, coronary artery disease, anxiety Assessment and plan: 51-year-old female with 2 complaints. complaint#1, right-sided chest pain which is nonexertional, atypical, present for the past few days. EKG unchanged x1 and from prior. Troponin negative x1. Tachycardia resolved. Patient denies DVT/PE risk factors, and she is low risk by Wells criteria for DVT and pulmonary embolism. She does have a number of cardiovascular risk factors, so I will therefore discussed with her automotive electrical fitter on-call to discuss an appropriate plan of cardiac risk ratification. Complaints #2, concern for overdose with ivermectin or sodium pentathol. Patient denies taking ivermectin. Patient is awake, alert, oriented, sober, and does not meet criteria for 1013 or involuntary hold or confinement. She is somewhat bizarre, but does exhibit lucid thought process and decision making capacity. Her presentation at this time is not consistent with sodium pentathol exposure. Maintain patient on traffic monitor specialist. Treat her with nonnarcotic medication, reassess. Check Tylenol and aspirin level. Reassess 07/07/21 15:52 Discussed the history, physical, laboratory studies and imaging studies and clinical impression with patient's automotive electrical fitter, Dr. King. Hypokalemia reviewed and appreciated. Potassium supplementation ordered. He recommends admission to the medical service, n.p.o. after midnight, and the Lexiscan stress test. Patient will be admitted to the medical service 07/07/21 16:43 Nursing team reports that the patient left AGAINST MEDICAL ADVICE. She left and would not sign paperwork, and I just learned about this. Cardiology is updated. ED Medical Decision Making - Lab Data Result diagrams: 07/07/21 14:24 07/07/21 14:24 Vital Signs 07/07/21 12:56 Temperature 98.1 F Pulse Rate 105 H Respiratory 18 Rate Blood Pressure 128/93 [Left] O2 Sat by Pulse 96 Oximetry Lab Results 07/07/21 07/07/21 07/07/21 Range/Units 14:24 14:24 14:24 WBC 6.7 (4.5-11.0) K/mm3 RBC 4.48 (3.65-5.03) M/mm3 Hgb 11.8 (10.1-14.3) gm/dl Hct 36.6 (30.3-42.9) % MCV 82 (79-97) fl MCH 26 L (28-32) pg MCHC 32 (30-34) % RDW 16.3 H (13.2-15.2) % Plt Count 210 (140-440) K/mm3 Lymph % (Auto) 23.1 (13.4-35.0) % [place] % (Auto) 8.4 H (0.0-7.3) % Eos % (Auto) 1.6 (0.0-4.3) % Baso % (Auto) 0.6 (0.0-1.8) % Lymph # (Auto) 1.5 (1.2-5.4) K/mm3 [place] # (Auto) 0.6 (0.0-0.8) K/mm3 Eos # (Auto) 0.1 (0.0-0.4) K/mm3 Baso # (Auto) 0.0 (0.0-0.1) K/mm3 Seg Neutrophils % 66.3 (40.0-70.0) % Seg Neutrophils # 4.4 (1.8-7.7) K/mm3 PT (12.2-14.9) Sec. INR (0.87-1.13) Sodium 142 (137-145) mmol/L Chloride 104.1 (98-107) mmol/L Carbon Dioxide 28 (22-30) mmol/L Anion Gap 13 mmol/L BUN 10 (7-17) mg/dL Creatinine 0.6 (0.6-1.2) mg/dL Estimated GFR > 60 ml/min BUN/Creatinine Ratio 17 % Glucose 144 H (65-100) mg/dL Calcium 8.8 (8.4-10.2) mg/dL Magnesium 1.90 (1.7-2.3) mg/dL Total Bilirubin 0.30 (0.1-1.2) mg/dL AST 20 (5-40) units/L ALT 33 (7-56) units/L Alkaline Phosphatase 100 (35-129) units/L Total Creatine Kinase 93 (30-135) units/L Troponin T < 0.010 (0.00-0.029) ng/mL Total Protein 5.9 L (6.3-8.2) g/dL Albumin 3.7 L (3.9-5) g/dL Albumin/Globulin Ratio 1.7 % Salicylates 0.9 L (2.8-20.0) mg/dL 07/07/21 Range/Units 14:24 WBC (4.5-11.0) K/mm3 RBC (3.65-5.03) M/mm3 Hgb (10.1-14.3) gm/dl Hct (30.3-42.9) % MCV (79-97) fl MCH (28-32) pg MCHC (30-34) % RDW (13.2-15.2) % Plt Count (140-440) K/mm3 Lymph % (Auto) (13.4-35.0) % [place] % (Auto) (0.0-7.3) % Eos % (Auto) (0.0-4.3) % Baso % (Auto) (0.0-1.8) % Lymph # (Auto) (1.2-5.4) K/mm3 [place] # (Auto) (0.0-0.8) K/mm3 Eos # (Auto) (0.0-0.4) K/mm3 Baso # (Auto) (0.0-0.1) K/mm3 Seg Neutrophils % (40.0-70.0) % Seg Neutrophils # (1.8-7.7) K/mm3 PT 13.6 (12.2-14.9) Sec. INR 0.94 (0.87-1.13) Sodium (137-145) mmol/L Chloride (98-107) mmol/L Carbon Dioxide (22-30) mmol/L Anion Gap mmol/L BUN (7-17) mg/dL Creatinine (0.6-1.2) mg/dL Estimated GFR ml/min BUN/Creatinine Ratio % Glucose (65-100) mg/dL Calcium (8.4-10.2) mg/dL Magnesium (1.7-2.3) mg/dL Total Bilirubin (0.1-1.2) mg/dL AST (5-40) units/L ALT (7-56) units/L Alkaline Phosphatase (35-129) units/L Total Creatine Kinase (30-135) units/L Troponin T (0.00-0.029) ng/mL Total Protein (6.3-8.2) g/dL Albumin (3.9-5) g/dL Albumin/Globulin Ratio % Salicylates (2.8-20.0) mg/dL - EKG Data -: EKG Interpreted by [place] EKG shows normal: sinus rhythm Rate: normal - EKG Data Interpretation: unchanged when compared t 07/07/21 15:12 The EKG is interpreted at 13: 48 The EKG today shows sinus rhythm, 88 bpm. There is a normal axis, with a normal P wave axis. There is low voltage. The QTC is 4 7 3 ms. The EKG today appears to be unchanged from prior EKG from July 2020. - Radiology Data Radiology results: pending, report reviewed, image reviewed CHEST 2 VIEWS INDICATION / CLINICAL INFORMATION: Chest Pain. COMPARISON: 07/24/2020 FINDINGS: SUPPORT DEVICES: None. HEART / MEDIASTINUM: No significant abnormality. LUNGS / PLEURA: No significant pulmonary or pleural abnormality. No pneumothorax. ADDITIONAL FINDINGS: No significant additional findings. IMPRESSION: 1. No acute findings. Signer Name: Harry Foster MD Signed: 07/07/2021 1:19 PM Workstation Name: [id number] Critical care attestation.: If time is entered above; I have spent that time in minutes in the direct care of this critically ill patient, excluding procedure time. ED Disposition Clinical Impression: Acute chest pain, Hypokalemia Disposition: 07 LEFT AGAINST MEDICAL ADVICE Is pt being admited?: No Does the pt Need Aspirin: No Condition: Undetermined Instructions: Chest Pain (ED) Referrals: PRIMARY CARE,MD [Primary Care Provider] - 3-5 Days Heart Score - HEART Score History: Slightly suspicious EKG: Non-specific Age: 45-65 Risk factors: > 3 risk factors or hx of atherosclerotic disease Troponin: < normal limit HEART Score: 4 - EKG Read Time Time EKG Completed: 13:48 EKG Read Time: 13:48 - Critical Actions Critical Actions: 4-6 pts:12-16.6% risk of adverse cardiac event. Should be admitted
--- NOTE | 2021-07-07 14:24 | XRay Report ---
CHEST 2 VIEWS INDICATION / CLINICAL INFORMATION: Chest Pain. COMPARISON: 07/24/2020 FINDINGS: SUPPORT DEVICES: None. HEART / MEDIASTINUM: No significant abnormality. LUNGS / PLEURA: No significant pulmonary or pleural abnormality. No pneumothorax. ADDITIONAL FINDINGS: No significant additional findings. IMPRESSION: 1. No acute findings. Signer Name: Harry Foster MD Signed: 07/07/2021 2:19 PM Workstation Name: [id number]
[2021-07-07 14:40] LABS: Basophils % (Auto) 0.6 % (0.0-1.8); Eosinophils # (Auto) 0.1 K/mm3 (0.0-0.4); Eosinophils % (Auto) 1.6 % (0.0-4.3); Hematocrit 36.6 % (30.3-42.9); Hemoglobin 11.8 gm/dl (10.1-14.3); Lymphocytes # (Auto) 1.5 K/mm3 (1.2-5.4); Lymphocytes % (Auto) 23.1 % (13.4-35.0); Mean Corpuscular HGB Conc 32 % (30-34); Mean Corpuscular Volume 82 fl (79-97); Monocytes # (Auto) 0.6 K/mm3 (0.0-0.8); Monocytes % (Auto) 8.4 % (0.0-7.3); Platelet Count 210 K/mm3 (140-440); Red Blood Count 4.48 M/mm3 (3.65-5.03); Red Cell Distribution Width 16.3 % (13.2-15.2)
[2021-07-07 14:53] LABS: INR 0.94 (0.87-1.13)
[2021-07-07 14:56] LABS: Alanine Aminotransferase 33 units/L (7-56); Albumin 3.7 g/dL (3.9-5); Blood Urea Nitrogen 10 mg/dL (7-17); Calcium 8.8 mg/dL (8.4-10.2); Hemolysis Index 4
[2021-07-07 15:15] LABS: BUN/Creatinine Ratio 17
[2021-07-07] MEDS ORDERED: POTASSIUM CHLORIDE ER 20 MEQ TAB PO ONE (15:35)
[2021-07-07] MEDS ORDERED: ASPIRIN 81 MG TAB CHEW PO ONE (15:53)
--- NOTE | 2021-07-07 17:16 | History and Physical Report ---
History of Present Illness Chief complaint: My chest hurts History of present illness: 51 YO Female with Obesity, HTN, HLD, CAD S/P Stent placement, [place] on DAPT, Nicotine Dependence, GERD, IBS presents ED for evaluation. Patient reports "my chest was hurting". Patient states that she experienced sudden onset chest pain which was localized to the right chest. Patient states that pain was 5/10, constant, worsened with exertion, relieved with rest. EMS was notified and upon arrival the patient was found to be in distress and subsequent transported to [facility] for further care and evaluation of the aforementioned symptoms. The patient was seen and evaluated in the emergency department. All lab and imaging studies reviewed. Patient found to have angina as well as a heart score of 4. Patient placed in observation status and admitted to telemetry for further care and evaluation. Patient denies fever, chills, palpitation, adductive cough, skin rash, recent contact, known exposure to COVID-19. Prior admission on 07/24/2020 reviewed. All medication listed at time of admission has been reconciled. Advanced care planning conducted in ED. Cardiology team consulted in AM. Past History Past Medical History: acute [place], CAD, GERD, hypertension, hyperlipidemia Past Surgical History: cholecystectomy, hysterectomy, Other (Fundoplication, hemorrhoidectomy) Social history: , smoking. denies: alcohol abuse, prescription drug abuse Family history: hypertension Medications and Allergies Allergies Allergy/AdvReac Type Severity Reaction Status Date / Time diphenhydramine HCl Allergy Swelling Verified 09/13/14 12:25 [From Benadryl] ketorolac tromethamine Allergy Shortness Verified 09/13/14 12:25 [From Toradol] of Breath Home Medications Medication Instructions Recorded Confirmed Last Taken Type Aspirin EC [Halfprin EC] 81 mg PO QDAY tablet 07/27/20 Unknown Rx Atorvastatin 40 mg PO DAILY #30 07/27/20 Unknown Rx Clopidogrel 75 mg PO DAILY #30 07/27/20 Unknown Rx Dicyclomine [Bentyl] 20 mg PO QID PRN #20 tablet 07/27/20 Unknown Rx Isosorbide Mononitrate 20 mg PO DAILY #30 07/27/20 Unknown Rx Metoprolol [Lopressor TAB] 25 mg PO BID tablet 07/27/20 Unknown Rx Metoprolol [Lopressor TAB] 25 mg PO BID #60 07/27/20 Unknown Rx Sertraline [Zoloft] 50 mg PO QDAY tablet 07/27/20 Unknown Rx traMADoL [Ultram 50 MG tab] 50 mg PO Q4H PRN tablet 07/27/20 Unknown Rx traZODone [Desyrel] 50 mg PO QHS tablet 07/27/20 Unknown Rx Review of Systems Constitutional: no weight loss, no weight gain, no chills Ears, nose, mouth and throat: no ear pain, no decreased hearing, no nose pain Cardiovascular: chest pain, no orthopnea, no rapid/irregular heart beat, no syncope Respiratory: no cough, no shortness of breath, no dyspnea on exertion Gastrointestinal: no abdominal pain, no vomiting, no diarrhea, no change in bowel habits Genitourinary Female: no pelvic pain, no flank pain, no dysuria, no urinary frequency Rectal: no pain, no incontinence, no bleeding Musculoskeletal: no neck stiffness, no neck pain, no arm numbness/tingling, no low back pain Integumentary: no rash, no redness, no wounds, no boils Neurological: no head injury, no weakness, no parathesias, no seizures, no syncope Psychiatric: no anxiety, no sleep disturbances, no insomnia, no change in appeti te, no change in libido Endocrine: no cold intolerance, no polydipsia, no polyuria, no nocturia, no flushing Hematologic/Lymphatic: no easy bruising, no easy bleeding Allergic/Immunologic: no urticaria, no wheezing Exam - Constitutional Vitals: Temp Pulse Resp BP Pulse Ox 98.1 F 105 H 18 128/93 96 07/07/21 12:56 07/07/21 12:56 07/07/21 12:56 07/07/21 12:56 07/07/21 12:56 General appearance: Present: mild distress, obese - EENT Eyes: Present: PERRL ENT: hearing intact, clear oral mucosa - Neck Neck: Present: supple, normal ROM - Respiratory Respiratory effort: normal Respiratory: bilateral: CTA - Cardiovascular Heart Sounds: Present: S1 & S2. Absent: rub, click - Extremities Extremities: pulses symmetrical, No edema Peripheral Pulses: within normal limits - Abdominal General gastrointestinal: Present: soft, non-tender, non-distended, normal bowel sounds Female genitourinary: Present: normal - Integumentary Integumentary: Present: clear, warm, dry - Musculoskeletal Musculoskeletal: gait normal, strength equal bilaterally - Psychiatric Psychiatric: appropriate mood/affect, intact judgment & insight - Neurologic Neurologic: CNII-XII intact, moves all extremities HEART Score - HEART Score EKG: Non-specific Age: 45-65 Risk factors: > 3 risk factors or hx of atherosclerotic disease Troponin: Troponin T < 0.010 ng/mL (0.00-0.029) 07/07/21 16:15 Troponin: < normal limit - Critical Actions Critical Actions: 4-6 pts:12-16.6% risk of adverse cardiac event. Should be admitted Results - Labs CBC & Chem 7: 07/07/21 14:24 07/07/21 14:24 Labs: Abnormal lab results 07/07/21 07/07/21 07/07/21 Range/Units 14:24 14:24 14:24 MCH 26 L (28-32) pg RDW 16.3 H (13.2-15.2) % [place] % (Auto) 8.4 H (0.0-7.3) % Potassium 2.7 L* (3.6-5.0) mmol/L Glucose 144 H (65-100) mg/dL Total Protein 5.9 L (6.3-8.2) g/dL Albumin 3.7 L (3.9-5) g/dL Salicylates 0.9 L (2.8-20.0) mg/dL Acetaminophen (10.0-30.0) ug/mL 07/07/21 Range/Units 14:24 MCH (28-32) pg RDW (13.2-15.2) % [place] % (Auto) (0.0-7.3) % Potassium (3.6-5.0) mmol/L Glucose (65-100) mg/dL Total Protein (6.3-8.2) g/dL Albumin (3.9-5) g/dL Salicylates (2.8-20.0) mg/dL Acetaminophen 5.0 L (10.0-30.0) ug/mL Assessment and Plan - Patient Problems (1) Angina at rest Current Visit: Yes Status: Acute Plan to address problem: Cardiology team consulted in ED. Patient pending stress test in a.m. as per cardiology team. Serial cardiac enzymes, EKG, remote telemetry monitoring, morphine, supplemental oxygen, nitro, aspirin, supportive care as per ACS protocol. (2) Hypertension Current Visit: Yes Status: Acute Qualifiers: Hypertension type: primary hypertension Qualified Code(s): I10 - Essential (primary) hypertension Plan to address problem: Monitor blood pressure every shift, continue medical management (3) Hyperlipidemia Current Visit: Yes Status: Acute Qualifiers: Hyperlipidemia type: mixed hyperlipidemia Qualified Code(s): E78.2 - Mixed hyperlipidemia Plan to address problem: Statin therapy, supportive care, low-cholesterol diet (4) Coronary artery disease Current Visit: Yes Status: Acute Qualifiers: Associated angina: with stable angina Plan to address problem: Risk factor reduction, statin therapy, lipid panel, dual antiplatelet therapy, supportive care. (5) Nicotine dependence Current Visit: Yes Status: Acute Qualifiers: Nicotine product type: cigarettes Substance use status: in withdrawal Qualified Code(s): F17.213 - Nicotine dependence, cigarettes, with withdrawal Plan to address problem: Smoking cessation counseling, supportive care, behavior change counseling, +15 minutes. (6) GERD (gastroesophageal reflux disease) Current Visit: Yes Status: Acute Qualifiers: Esophagitis presence: without esophagitis Qualified Code(s): K21.9 - Gastro-esophageal reflux disease without esophagitis Plan to address problem: PPI therapy, supportive care (7) DVT prophylaxis Current Visit: Yes Status: Acute Plan to address problem: SCD to bilateral lower extremities while in bed, patient is ambulatory (8) Advance care planning Current Visit: Yes Status: Acute Plan to address problem: Disease education conducted, care plan discussed, diagnosis discussed, prognosis discussed, patient is full code. Patient acknowledges understanding and agreement with care plan, +30 minutes.
--- NOTE | 2021-07-07 17:23 | Event Note ---
Date: 07/07/21 Patient left AMA prior to completion of work-up as well as cardiology evaluation. Patient pending inpatient stress test due to increased cardiac risk factors. Patient left AMA..
== END 2021-07-07 16:41 | disposition left against medical advice (07) ==
LOC: ED 12:22
DX: R07.9 Chest pain, unspecified (principal); E87.6 Hypokalemia; I10 Essential (primary) hypertension; K21.9 Gastro-esophageal reflux disease without esophagitis; J45.909 Unspecified asthma, uncomplicated; K58.9 Irritable bowel syndrome, unspecified; F17.200 Nicotine dependence, unspecified, uncomplicated; Z90.49 Acquired absence of other specified parts of digestive tract; Z90.711 Acquired absence of uterus with remaining cervical stump; Z98.890 Other specified postprocedural states; Z88.5 Allergy status to narcotic agent; Z88.8 Allergy status to other drugs, medicaments and biological substances
CPT/HCPCS: 36415; 71046; 80053; 80320; 82550; 83735; 84484; 85025; 85610; 93005; 99284; G0480